=== PATIENT | male | born 1970 | race Caucasian/White ===

== ENCOUNTER 2018-11-12 22:14 | Emergency (ER) | payer OTHER ==
--- NOTE | 2018-11-12 22:19 | ED Physician Documentation ---
PD HPI LOWER EXT INJURY - Stated complaint Stated Complaint: ANKLE INJURY - Chief complaint Chief Complaint: Trauma Ext - History obtained from History obtained from: Patient, EMS - History of Present Illness PD HPI LOW EXT INJURY LOCATION: Right (He was at work and stepped in a hole, inverted his right ankle with moderate pain there but declines pain medication. He was able to walk afterwards. No other injuries.) Review of Systems Cardiac: reports: Reviewed and negative Respiratory: reports: Reviewed and negative PD PAST MEDICAL HISTORY - Past Medical History GI: GERD - Past Surgical History Derm: Skin cancer surgery - Present Medications Home Medications: Ambulatory Orders Medication Instructions Recorded Confirmed Omeprazole [PriLOSEC] 20 mg PO DAILY 01/08/15 11/12/18 - Allergies Allergies/Adverse Reactions: Allergies Allergy/AdvReac Type Severity Reaction Status Date / Time No Known Drug Allergies Allergy Verified 11/12/18 22:21 - Social History Does the pt smoke?: No Smoking Status: Never smoker Does the pt drink ETOH?: Yes Does the pt have substance abuse?: No - Immunizations Immunizations are current?: Yes PD ED PE NORMAL - Vitals Vital signs reviewed: Yes - General General: Alert and oriented X 3, No acute distress - Extremities Extremities: Other (Tenderness more to the ATFL than the lateral malleolus, some overlying swelling there. No proximal fibular tenderness on the right.) - Neuro Neuro: Alert and oriented X 3, Normal speech Results - Vitals Vitals: Vital Signs - 24 hr 11/12/18 22:15 Temperature 37.1 C Heart Rate 84 Respiratory 14 Rate Blood Pressure 165/66 H O2 Saturation 99 Oxygen O2 Source Room air - Rads (name of study) R ankle XR Radiology: EMP read contemporaneously (NAD) Departure - Departure Disposition: 01 Home, Self Care Clinical Impression: Right ankle sprain Qualifiers: Encounter type: initial encounter Involved ligament of ankle: anterior talofibular ligament Qualified Code(s): S93.491A - Sprain of other ligament of r ight ankle, initial encounter Condition: Good Record reviewed to determine appropriate education?: Yes Instructions: ED Sprain Ankle W X Ray Comments: Recheck with your doctor in a week if not better, ibuprofen as needed for pain. Return for new or worsening symptoms. Your blood pressure was elevated today on check into the emergency department. This does not mean that you have hypertension, it is a common phenomenon to come to the emergency department and have elevated blood pressure. I recommend that you see your primary care physician within the week to have it rechecked when you are feeling better. Forms: Activity restrictions
--- NOTE | 2018-11-12 22:48 | XRAY Report ---
Reason: ankle inj Procedure Date: 11/12/2018 Accession Number: [id number] / [id number] Procedure: XR - Ankle 3 View RT CPT Code: FULL RESULT: EXAM: RIGHT ANKLE RADIOGRAPHY EXAM DATE: 11/12/2018 10:33 PM. CLINICAL HISTORY: Ankle injury COMPARISON: None. TECHNIQUE: 3 views. FINDINGS: Bones: No fracture or focal bony lesion. Joints: No evidence of dislocation. 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 Soft Tissues: No unexpected soft tissue findings. IMPRESSION: No evidence of fracture or dislocation. RADIA
[2018-11-12 22:56] VITALS: BP 100/89
== END 2018-11-12 22:56 | disposition home or self-care (01) ==
LOC: EDUNIT# → ED 22:14
DX: S93.491A Sprain of other ligament of right ankle, initial encounter (principal); X50.1XXA Overexertion from prolonged static or awkward postures, initial encounter; Y93.01 Activity, walking, marching and hiking; Y99.0 Civilian activity done for income or pay; R03.0 Elevated blood-pressure reading, without diagnosis of hypertension
CPT/HCPCS: 1040M; 73610; 99282; 99283

== ENCOUNTER 2022-02-25 10:38 | Outpatient (CLI) | payer OTHER ==
--- NOTE | 2022-02-25 11:36 | XRAY Report ---
PROCEDURE: Chest 2 View X-Ray INDICATIONS: CHRONIC COUGH TECHNIQUE: 2 views of the chest were acquired. COMPARISON: None. FINDINGS: Surgical changes and devices: None. Lungs and pleura: There is a 0.9 cm nodular density in the left lower lobe. Bilateral interstitial p rominence. No pleural effusions or pneumothorax. Left lower lobe infiltrate and/or atelectasis. No fo jarred consolidation. Mediastinum: Mediastinal contours are normal. Heart size is normal. Bones and chest wall: No suspicious bony abnormalities. Soft tissues appear unremarkable. IMPRESSION: 1. A 0.9 cm nodule in the left lower lobe. Recommend chest CT for follow-up evaluation. 2. Left lower lobe infiltrate and/or atelectasis. 3. Bilateral interstitial prominence. Reviewed by: Phylicia Urias MD on 02/25/2022 10:35 AM [facility] Approved by: Phylicia Urias MD on 02/25/2022 10:35 AM [facility] Station ID: [id number]
== END 2022-02-25 10:39 | disposition home or self-care (01) ==
LOC: DI 10:38
PROVIDERS: ATTEND Physician Assistant
DX: R91.8 Other nonspecific abnormal finding of lung field (principal)

== ENCOUNTER 2022-02-26 15:09 | Outpatient (CLI) | payer OTHER ==
[2022-02-26 18:15] LABS: CALCIUM 9.8 mg/dL (8.5-10.3); POTASSIUM 3.9 mmol/L (3.5-5.0)
== END 2022-02-26 15:10 | disposition home or self-care (01) ==
LOC: LAB.N 15:09
PROVIDERS: ATTEND Physician Assistant
DX: R05.3 Chronic cough (principal)
CPT/HCPCS: 36415; 80048